=== PATIENT | male | born 1985 | race African-American/Black ===

== ENCOUNTER 2020-07-26 07:24 | Emergency (ER) | payer OTHER ==
[~2020-07-26] VITALS: Ht 182.9 cm; Wt 158.8 kg
[2020-07-26 07:38] VITALS: BP 171/99
[2020-07-26] MEDS ORDERED: NORVASC10 MG PO (08:06)
[2020-07-26] MEDS ORDERED: BUTALB-APAP-CA1 EACH PO (08:06)
== END 2020-07-26 09:07 | disposition home or self-care (01) ==
LOC: ER 07:24
DX: I10 Essential (primary) hypertension (principal); F12.90 Cannabis use, unspecified, uncomplicated; Z88.0 Allergy status to penicillin; Z91.013 Allergy to seafood